=== PATIENT | female | born 1995 | race African-American/Black ===

== ENCOUNTER 2020-06-24 07:41 | Outpatient (CLI) | payer BC, MEDICAID | END 2020-06-24 07:42 | disposition home or self-care (01) | LOC: CSHULT 07:41 | PROVIDERS: ATTEND Nurse Practitioner Women's Health | DX: R10.2 Pelvic and perineal pain (principal) | CPT/HCPCS: 76856 ==

== ENCOUNTER 2021-04-20 19:32 | Emergency (ER) | payer BC, MEDICAID ==
[2021-04-20] MEDS ORDERED: Acetaminophen 500 MG TAB ONE (20:29)
[2021-04-20] MEDS ORDERED: Ibuprofen 200 MG TAB ONE (20:29)
[2021-04-21 16:55] LABS: SARS-CoV-2 PCR by NAA DETECTED (NotDetected)
== END 2021-04-20 20:52 | disposition home or self-care (01) ==
LOC: CSHERS 19:32
DX: U07.1 COVID-19 (principal); I10 Essential (primary) hypertension; Z79.899 Other long term (current) drug therapy
CPT/HCPCS: 99284; U0003; U0005

== ENCOUNTER 2022-07-24 19:40 | Emergency (ER) | payer BC, MEDICAID, SELFPAY ==
[2022-07-24 21:12] LABS: #Basophils 0.1 10x3/uL (0.0-0.2); #Eosinphils 0.6 10x3/uL (0.0-0.5); #Monocytes 0.9 10x3/uL (0.0-1.1); #Neutrophils 4.6 10x3/uL (1.5-8.4); %Eosinophils 6.6 % (0.0-6.0); %Lymphocytes 26.6 % (18.0-47.0); %Monocytes 10.2 % (0.0-10.0); %Neutrophils 55.5 % (40.0-75.0); Hemoglobin 12.7 g/dL (12.0-15.5); Mean Corpuscular HGB CONC 34.1 g/dL (32.0-36.0); Mean Corpuscular Hemoglobin 29.4 pg (27.0-33.0); Mean Corpuscular Volume 86.1 fl (81.6-98.3); Mean Platelet Volume 10.8 fl (7.4-10.4); Platelet Count 236 10x3/uL (150-450); RBC Distribution Width 13.4 % (11.5-14.5); Red Blood Cell (RBC) Count 4.32 10x6/uL (3.90-5.03); White Blood Cell (WBC) Count 8.3 10x3/uL (3.5-10.5)
[2022-07-24 21:28] LABS: ALT (SGPT) 11 U/L (8-55); AST (SGOT) 20 U/L (5-34); Albumin 4.4 g/dL (3.5-5.0); Alkaline Phosphatase 65 U/L (40-110); Anion Gap 14 mmol/L (10-20); BUN (Urea Nitrogen) 6 mg/dL (7.0-18.7); Bilirubin, Total 0.4 mg/dL (0.2-1.2); Calc. Creatinine Clearance 0 mL/min (70-130); Calcium 8.8 mg/dL (7.8-10.44); Carbon Dioxide 23 mmol/L (22-29); Chloride 105 mmol/L (98-107); Estimated GFR 105; Glucose 86 mg/dL (70-105); Potassium 3.8 mmol/L (3.5-5.1); Protein, Total 7.4 g/dL (6.0-8.3); Sodium 138 mmol/L (136-145)
[2022-07-25] MEDS ORDERED: Ketorolac Tromethamine 30 MG/ML VIAL ONE (03:35)
== END 2022-07-24 21:55 | disposition home or self-care (01) ==
LOC: CSHERS 19:40
DX: R07.9 Chest pain, unspecified (principal); I10 Essential (primary) hypertension
CPT/HCPCS: 36415; 71045; 80053; 84484; 85025; 93005

== ENCOUNTER 2023-10-30 10:47 | Day surgery (SDC) | payer BC, OTHER | END 2023-10-30 12:43 | disposition home or self-care (01) | LOC: CSHLD/OP 10:47 | PROVIDERS: ATTEND Family Medicine | DX: O26.853 Spotting complicating pregnancy, third trimester (principal); O24.113 Pre-existing type 2 diabetes mellitus, in pregnancy, third trimester; O10.913 Unspecified pre-existing hypertension complicating pregnancy, third trimester; O34.211 Maternal care for low transverse scar from previous cesarean delivery; O09.43 Supervision of pregnancy with grand multiparity, third trimester; Z3A.33 33 weeks gestation of pregnancy; Z79.82 Long term (current) use of aspirin; Z79.899 Other long term (current) drug therapy | CPT/HCPCS: 99282 ==